=== PATIENT | female | born 1990 | race African-American/Black ===

== ENCOUNTER 2023-09-10 10:32 | Emergency (ER) | payer OTHER, SELFPAY ==
--- NOTE | 2023-09-10 10:49 | ED.ABDPAIN ---
HPI - Abdominal Pain General Chief Complaint: Urogenital-Female Stated Complaint: abdominal pain Time Seen by Provider: 09/10/23 11:01 Source: patient Mode of arrival: ambulatory Limitations: no limitations History of Present Illness HPI narrative: Shannan is a 33-year-old female patient presenting to clinic today with complaints of lower abdominal discomfort and vaginal discharge with foul odor for the past few days. She reports last menstrual period was earlier this month. No chance of . States last intercourse was approximately 3 months ago and she is no longer without partner. Review of Systems Review of Systems: Pertinent positives per HPI. Patient denies any fever, chills, rash, headache, visual changes, dizziness, cough, runny nose, sore throat, shortness of breath, chest pain, palpitations, nausea, vomiting, diarrhea, constipation, abdominal pain, or any urinary issues. PMFSH Comments At the time of my signature, I reviewed and agree with the nursing past medical, surgical, social, and family history. There is no relevant family history pertinent to the patient complaint. Exam Narrative: General: Well-developed, well nourished, in no apparent distress Head: Normocephalic, atraumatic. Cardio: Regular rate and rhythm, s1 and s2 normal, no murmur appreciated. Resp: Clear to auscultation bilaterally, no rhonchi, rales, wheezing or rubs. Abdomen: Soft, pliable, bowel sounds present in all quadrants, non-tender to palpation, no CVAT tenderness. : Pelvic exam performed with ( Luba CORNEJO) at bedside. Verbal consent obtained from patient. Normal external female genitalia without lesions or masses, Urinary meatus: patent without discharge, Vagina: No lesions or masses, thick frothy white vaginal discharge with odor Cervix: pink without mass lesions, discharge, or tenderness. Adnexa: without palpable mass or mild tenderness over bilateral adenexa. Course Course Emergency Course: Portions of this record may have been created with voice recognition software. Level of Care: Express Care Visit Vital Signs Vital signs: Vital signs reviewed MDM - Abdominal Pain MDM Narrative Medical decision making narrative: At the time of visit patient is resting comfortably on the exam table. Patient appears to be nontoxic. UA was performed and shows a trace of leukocytes. We will send for culture. Preg test was performed and negative. I suspect patient may have BV versus Trichomonas. Prescription for Flagyl was sent to the pharmacy. Supportive measures were discussed with the patient and they voiced understanding discharge instructions and agrees to treatment plan. Return precautions reviewed Differential Diagnosis Differential diagnosis: Likely abdominal pain and other (Bacterial vaginosis, urinary tract infection, STI, ovarian cyst) Discharge Plan Discharge Clinical Impression: Bilateral lower abdominal pain, Problematic vaginal discharge Patient Disposition: Home, Self-Care Condition: Stable Instructions: Antibiotic Form, Bacterial Vaginosis (ED), Abdominal Pain (ED), Vaginal Discharge (ED) Additional Instructions: UA shows trace of leukocytes. We will send for culture Urine test was negative. Take Flagyl as prescribed-will treat bacterial vaginosis and Trichomonas. We have tested/treated you for STIs in the clinic today. Avoid any sexual activity- includes oral, anal, or vaginal intercourse until you get results back and have completed any additional recommended treatment regimens. We will contact you if testing is positive and make sure your treatment was appropriate for the type of STI. If symptoms worsen after treatment recommend reevaluation with your PCP or STI clinic Prescriptions: New metronidazole 500 mg tablet 500 mg PO Q12H 7 Days Qty: 14 0RF Follow-up/Referrals: PHYSICIAN,ALLERGIST/PEDIATRIC PULMONOLOGIST [Primary Care Provider] - Time of Disposition: 11:37 Qu
[2023-09-10 10:50] VITALS: BP 141/90; PULSE 95; RESP 16; TEMP 36.6; O2SAT 100
[2023-09-10 14:41] LABS: Trichomonas Vag PCR NOT DETECTED (NOT DETECTE)
[2023-09-10 15:04] LABS: Chlamydia trachomatis DETECTED (NOT DETECTE); Neisseria gonorrhoeae PCR NOT DETECTED (NOT DETECTE)
[2023-09-14 09:46] LABS: Bacterial Vaginosis Positive (Negative)
== END 2023-09-10 11:45 | disposition home or self-care (01) ==
PROVIDERS: Emergency Provider Nurse Practitioner Family
DX: R10.32 Left lower quadrant pain (principal); R10.31 Right lower quadrant pain; N89.8 Other specified noninflammatory disorders of vagina
CPT/HCPCS: 81003; 81025; 81513; 87086; 87088; 87491; 87591; 87661; 99204; G0463

== ENCOUNTER 2024-08-19 11:23 | Emergency (ER) | payer BC, SELFPAY ==
[2024-08-19 11:36] VITALS: BP 109/75; PULSE 93; RESP 16; TEMP 36.4; O2SAT 100
--- NOTE | 2024-08-19 12:34 | ED_ITS ---
HPI - Female Genitourinary General Chief complaint: Urogenital-Female Stated complaint: UTI Time Seen by Provider: 08/19/24 12:34 Source: patient, RN notes reviewed and old records reviewed Mode of arrival: ambulatory Limitations: no limitations History of Present Illness HPI Narrative: Patient presents with complaints of hematuria and lower abdominal pain that began yesterday. She denies any injury or trauma. She denies any fever, chills, sweats. Reports urinary frequency and burning. She denies fever, chills, sweats. She voices no other concerns or complaints today Related Data Allergies Allergy/AdvReac Type Severity Reaction Status Date / Time No Known Allergies Allergy Verified 08/19/24 12:15 Review of Systems Review of Systems: All systems reviewed & are unremarkable except as noted in HPI and below Constitutional: Constitutional: Reports no additional constitutional complaints ENT: Reports system reviewed and no additional complaints, except as documented Cardiovascular: Cardiovascular: Reports no additional cardiovascular complaints Respiratory: Respiratory: Reports no additional respiratory complaints Gastrointestinal: Gastrointestinal: Reports no additional gastrointestinal complaints Genitourinary: Genitourinary: Reports as per HPI, Reports hematuria, Reports nocturia and Reports dysuria PMFSH Comments At the time of my signature, I reviewed and agree with the nursing past medical, surgical, social, and family history. There is no relevant family history pertinent to the patient complaint. Exam Const: General: cooperative, no acute distress, alert and awake Orientation/consciousness: oriented to person, oriented to place and oriented to time HENMT: Head: normal to inspection Mouth: Yes moist mucous membranes Resp: Effort & Inspection: normal respiratory effort and able to speak in complete sentences Auscultation: clear to auscultation bilaterally, no crackles, no rales, no rhonchi and no wheezes Cardio: Palpation: normal PMI Rate: regular rate Rhythm: regular rhythm Heart sounds: S1 normal heart sound present and S2 normal heart sound present : General: Yes bladder normal to palpation and Yes no CVA tenderness Neuro: General: oriented to person, oriented to place and oriented to time Cranial nerves: Yes CN's II-XII intact bilaterally Psych: Appearance: grossly normal Thought process: Normal thought process present Insight: Good insight present (Psych) Judgement: Good judgement present (Psych) Course Course Level of Care: Express Care Visit Vital Signs Vital signs: Vital Signs Temperature 97.5 F L 08/19/24 11:36 Pulse Rate 93 08/19/24 11:36 Respiratory Rate 16 08/19/24 11:36 Blood Pressure 109/75 08/19/24 11:36 Pulse Oximetry 100 08/19/24 11:36 Oxygen Delivery Room Air 08/19/24 11:36 Temperature 97.5 F L 08/19/24 11:36 Pulse Rate 93 08/19/24 11:36 Respiratory Rate 16 08/19/24 11:36 Blood Pressure 109/75 08/19/24 11:36 Pulse Oximetry 100 08/19/24 11:36 Oxygen Delivery Room Air 08/19/24 11:36 Reviewed MDM - Female Genitourinary MDM Narrative Medical decision making narrative: UA concerning for UTI. Start p.o. abx. No CVA tenderness. Patient advised if any symptoms get worse go immediately to emergency department. Follow with primary care provider. Discharge instructions reviewed with patient, as well as provided in writing per nursing staff. The instructions also include specific and strict return/GO TO THE ER as well as f/u information. All questions have been answered, and the patient deny any further questions with discharge and discharge plan. Dictation Differential Diagnosis Differential diagnosis: Likely urinary tract infection and cystitis Medical Records Attestation: I reviewed the patient's medical records. Lab Data Attestation: I reviewed the patient's lab results. Discharge Plan Discharge Clinical Impression: Urinary tract infection Qualifiers: Urinary tract infection type: site unspecified Hematuria presence: with hematuria Qualified Code(s): N39.0 - Urinary tract infection, site not specified Patient Disposition: Home, Self-Care Condition: Stable Instructions: Antibiotic Form, Urinary Tract Infection in Women (ED) Additional Instructions: Plenty of rest and fluids. Take antibiotics as prescribed. Follow-up with primary care provider without fail. Emergency department for any new or worse symptoms or if current symptoms do not resolve Patient Language: [place]itanian Prescriptions: New nitrofurantoin monohyd/m-cryst [Macrobid] 100 mg capsule 100 mg PO Q12H 5 Days Qty: 10 0RF Rx Instructions: must administer with a meal/food Follow-up/Referrals: Bobo Pierce MD [Primary Care Provider] - Stand Alone Forms: Work/School Release IP Time of Disposition: 13:00
[2024-08-19 12:58] LABS: EDUAAPPEAR Cloudy; EDUABILI Negative (Negative); EDUABLOOD 3+ (Negative); EDUACOLOR1 Yellow; EDUAGLUCOSE Negative (Negative); EDUAKETONE Negative (Negative); EDUALEUKO 1+ (Negative); EDUANITRATE Negative (Negative); EDUAPROTEIN Negative (Negative); EDUASPGRAVITY 1.015; EDUAUROBILI 0.2
== END 2024-08-19 13:09 | disposition home or self-care (01) ==
PROVIDERS: Emergency Provider Nurse Practitioner Family; PCP Emergency Medicine
DX: N39.0 Urinary tract infection, site not specified (principal)
CPT/HCPCS: 81003; 87086; 99213; G0463